=== PATIENT | male | born 1960 | race Hispanic/Latino ===

== ENCOUNTER 2017-02-15 11:23 | Emergency (ER) | payer MEDICAID ==
[2017-02-15 11:45] VITALS: PULSE 90; RESP 18; TEMP 98.2
--- NOTE | 2017-02-15 11:45 | C.PDOC ---
History Of Present Illness 56 yr old male presents to the ER requesting med refill. Patient reports his last dose of all his medications was last night. Denies fever, chills, chest pain, SOB, nausea, vomiting, headache, weakness or numbness. Time Seen by Provider: 02/15/17 11:34 Chief Complaint (Nursing): Med Refill History Per: Patient History/Exam Limitations: no limitations Onset/Duration Of Symptoms: Days (Last dose last night) Past Medical History Reviewed: Historical Data, Nursing Documentation, Vital Signs Vital Signs: Last Vital Signs Temp 98.2 F 02/15/17 12:21 Pulse 90 02/15/17 12:21 Resp 18 02/15/17 12:21 BP 157/98 H 02/15/17 12:21 Pulse Ox 97 02/15/17 12:27 - Medical History PMH: Depression Family History: States: No Known Family Hx - Social History Hx Alcohol Use: Yes Hx Substance Use: No - Immunization History Hx Tetanus Toxoid Vaccination: No Hx Influenza Vaccination: No Hx Pneumococcal Vaccination: No Review Of Systems Except As Marked, All Systems Reviewed And Found Negative. Constitutional: Negative for: Fever, Chills Cardiovascular: Negative for: Chest Pain Respiratory: Negative for: Shortness of Breath Gastrointestinal: Negative for: Nausea, Vomiting Neurological: Negative for: Weakness, Numbness, Headache Physical Exam - Physical Exam Appears: Well, Non-toxic, No Acute Distress Skin: Warm, Dry, No Rash Head: Atraumatic, Normacephalic Oral Mucosa: Moist Chest: Symmetrical, No Tenderness Cardiovascular: Rhythm Regular, No Murmur Respiratory: Normal Breath Sounds, No Rales, No Rhonchi, No Stridor, No Wheezing Extremity: Normal ROM, No Swelling Neurological/Psych: Oriented x3, Normal Speech, Normal Motor ED Course And Treatment O2 Sat by Pulse Oximetry: 97 (on RA) Pulse Ox Interpretation: Normal Medical Decision Making Medical Decision Making: Patient reports that he took all his last dose of the medications yesterday. Disposition - Disposition Referrals: [facility] [Outside] Disposition: HOME/ ROUTINE Disposition Time: 11:46 Condition: GOOD Additional Instructions: Follow up with the medical doctor within 1-2 days. Return if worsened. Prescriptions: Atorvastatin [Lipitor] 10 mg PO DIN #30 tab buPROPion XL [Wellbutrin XL] 300 mg PO DAILY #20 t24 Gabapentin 300 mg PO TID #60 capsule Pantoprazole Sodium [Protonix] 40 mg PO DAILY #30 tablet. Sennosidemana [Senexon] 8.6 mg PO DAILY #30 tablet Warfarin [Coumadin] 7.5 mg PO DAILY #20 tab Instructions: Medicine Refill (ED) - Clinical Impression Clinical Impression: Review of medication - PA / AREA FIELD MANAGER / Resident Statement MD/DO has reviewed & agrees with the documentation as recorded. - Scribe Statement The provider has reviewed the documentation as recorded by the Scriblokesh Ramsey All medical record entries made by the Shannon were at my direction and personally dictated by me. I have reviewed the chart and agree that the record accurately reflects my personal performance of the history, physical exam, medical decision making, and the department course for this patient. I have also personally directed, reviewed, and agree with the discharge instructions and disposition.
[2017-02-15 12:21] VITALS: BP 157/98
[2017-02-15 12:27] VITALS: O2SAT 97
== END 2017-02-15 12:21 | disposition home or self-care (01) ==
LOC: C.ER 11:23
DX: Z51.81 Encounter for therapeutic drug level monitoring (principal); Z79.899 Other long term (current) drug therapy

== ENCOUNTER 2017-03-14 16:58 | Emergency (ER) | payer MEDICAID ==
[2017-03-14 17:23] VITALS: BP 121/73; PULSE 68; RESP 18; TEMP 98.1; O2SAT 97
--- NOTE | 2017-03-14 18:02 | C.PDOC ---
History Of Present Illness Pt states he recently moved here from [place]. He needs a refill of his medications as he states that he just obtained a PMD (Dr. Cuenca) but does not have an appointment yet. He denies any symptoms. Time Seen by Provider: 03/14/17 17:51 Chief Complaint (Nursing): Med Refill History Per: Patient Current Symptoms Are (Timing): Still Present Severity: None Reports Recently: Seen In ED Additional History Per: Prior Records Past Medical History Reviewed: Historical Data, Nursing Documentation, Vital Signs Vital Signs: Last Vital Signs Temp 98.1 F 03/14/17 17:22 Pulse 68 03/14/17 17:22 Resp 18 03/14/17 17:22 BP 121/73 03/14/17 17:22 Pulse Ox 97 03/14/17 17:22 - Medical History PMH: Depression, Deep Vein Thrombosis, GERD, Hypercholesterolemia Other PMH: Neuropathy Other Surgeries: Surgery for esophageal rupture. Family History: States: Unknown Family Hx - Social History Hx Alcohol Use: Yes Hx Substance Use: No - Immunization History Hx Tetanus Toxoid Vaccination: No Hx Influenza Vaccination: No Hx Pneumococcal Vaccination: No Review Of Systems Except As Marked, All Systems Reviewed And Found Negative. Constitutional: Negative for: Fever Cardiovascular: Negative for: Chest Pain Respiratory: Negative for: Shortness of Breath Gastrointestinal: Negative for: Vomiting, Abdominal Pain, Melena, Hematochezia, Hematemesis Genitourinary: Negative for: Hematuria Musculoskeletal: Negative for: Neck Pain Skin: Negative for: Rash Neurological: Negative for: Weakness, Numbness, Seizures, Altered Mental Status Physical Exam - Physical Exam Appears: Non-toxic, No Acute Distress Skin: Normal Color, Warm, Dry, No Rash Head: Atraumatic, Normacephalic Eye(s): bilateral: Normal Inspection, PERRL, EOMI Neck: Normal ROM, Supple Cardiovascular: Rhythm Regular Respiratory: Normal Breath Sounds, No Accessory Muscle Use Gastrointestinal/Abdominal: Soft, No Tenderness Extremity: Normal ROM Neurological/Psych: Oriented x3, Normal Motor, Normal Sensation ED Course And Treatment O2 Sat by Pulse Oximetry: 97 Pulse Ox Interpretation: Normal Disposition Counseled Patient/Family Regarding: Diagnosis, Need For Followup, Rx Given - Disposition Referrals: Lesa Cuenca MD [Medical Doctor] - Disposition Time: 18:03 Condition: STABLE Additional Instructions: Follow up with your primary doctor as soon as possible for further evaluation and treatment. Return to the ER if you develop any bleeding, chest pain, shortness of breath, worsening of symptoms or if you have any other concerns. Prescriptions: Atorvastatin [Lipitor] 10 mg PO DAILY #30 tab buPROPion XL [Wellbutrin XL] 300 mg PO DAILY #30 t24 Gabapentin 300 mg PO TID #90 capsule Pantoprazole Sodium [Protonix] 40 mg PO DAILY #30 ect Warfarin [Coumadin] 7.5 mg PO DAILY #30 tab Instructions: Medicine Refill (ED) - Clinical Impression Clinical Impression: Prescription refill
== END 2017-03-14 18:17 | disposition home or self-care (01) ==
LOC: C.ER 16:58
DX: Z76.0 Encounter for issue of repeat prescription (principal)